=== PATIENT | female | born 1950 | race Native Hawaiian/Other Pacific Islander ===

== ENCOUNTER 2016-03-25 17:09 | Outpatient (CLI) | payer OTHER | END 2016-03-25 19:19 | disposition home or self-care (01) | LOC: RAD 17:09 | DX: J01.10 Acute frontal sinusitis, unspecified (principal); R91.1 Solitary pulmonary nodule ==

== ENCOUNTER 2016-04-12 08:12 | Outpatient (CLI) | payer OTHER ==
[2016-04-12 08:35] LABS: PLATELET COUNT 172 K/uL (152-353)
[2016-04-12 08:58] LABS: POTASSIUM 4.5 mmol/L (3.6-5.2)
== END 2016-04-12 19:32 | disposition home or self-care (01) ==
LOC: LABW 08:12
PROVIDERS: Internal Medicine
DX: I10 Essential (primary) hypertension (principal)
CPT/HCPCS: 36415; 80053; 80061; 81000; 84443; 85027

== ENCOUNTER 2016-04-30 07:24 | Outpatient (CLI) | payer OTHER | END 2016-04-30 19:58 | disposition home or self-care (01) | LOC: CT 07:24 | DX: R91.8 Other nonspecific abnormal finding of lung field (principal) | CPT/HCPCS: 36415; 82565; 84520; Q9963 ==

== ENCOUNTER 2016-05-13 13:03 | Outpatient (CLI) | payer OTHER | END 2016-05-13 19:05 | disposition home or self-care (01) | LOC: NM 13:03 | DX: K80.20 Calculus of gallbladder without cholecystitis without obstruction (principal) | CPT/HCPCS: A9537 ==

== ENCOUNTER 2016-06-10 08:03 | Outpatient (CLI) | payer OTHER | END 2016-06-10 10:00 | disposition home or self-care (01) | LOC: CT 08:03 | DX: R16.0 Hepatomegaly, not elsewhere classified (principal) | CPT/HCPCS: 36415; 82565; 84520; Q9963 ==

== ENCOUNTER 2016-07-20 14:32 | Emergency (ER) | payer OTHER ==
[~2016-07-20] VITALS: Ht 167.6 cm; Wt 65.8 kg
[2016-07-20 14:50] VITALS: TEMP 98.9
[2016-07-20 15:35] LABS: PLATELET COUNT 148 K/uL (152-353)
[2016-07-20 15:40] LABS: POTASSIUM 4.2 mmol/L (3.6-5.2)
[2016-07-20 16:23] VITALS: BP 121/68
== END 2016-07-20 16:29 | disposition home or self-care (01) ==
LOC: ED 14:32
DX: R53.1 Weakness (principal); R53.83 Other fatigue
CPT/HCPCS: 36415; 80053; 82550; 82553; 84484; 85027; 93005; 96360; 99284

== ENCOUNTER 2016-11-12 09:48 | Emergency (ER) | payer OTHER ==
[~2016-11-12] VITALS: Ht 167.6 cm; Wt 68.0 kg
[2016-11-12 10:47] LABS: PLATELET COUNT 182 K/uL (152-353)
[2016-11-12 11:00] VITALS: TEMP 98.2
[2016-11-12 11:30] LABS: POTASSIUM 4.5 mmol/L (3.6-5.2)
[2016-11-12 14:16] VITALS: BP 132/68
== END 2016-11-12 14:22 | disposition home or self-care (01) ==
LOC: ED 09:48
DX: I95.89 Other hypotension (principal); E86.9 Volume depletion, unspecified
CPT/HCPCS: 36415; 80053; 85027; 96360; 96374; 96375; 99284; J2405

== ENCOUNTER 2017-01-28 08:47 | Outpatient (CLI) | payer OTHER ==
[2017-01-28 09:22] LABS: PLATELET COUNT 147 K/uL (152-353)
[2017-01-28 09:40] LABS: POTASSIUM 4.2 mmol/L (3.6-5.2)
== END 2017-01-28 18:57 | disposition home or self-care (01) ==
LOC: LABW 08:47
PROVIDERS: Internal Medicine
DX: I10 Essential (primary) hypertension (principal)
CPT/HCPCS: 36415; 80053; 80061; 81000; 84439; 84443; 85027

== ENCOUNTER 2017-09-21 08:07 | Outpatient (CLI) | payer OTHER ==
[2017-09-21 08:58] LABS: POTASSIUM 4.4 mmol/L (3.6-5.2)
[2017-09-21 09:24] LABS: PLATELET COUNT 151 K/uL (152-353)
== END 2017-09-21 23:59 | disposition home or self-care (01) ==
LOC: LABW 08:07
PROVIDERS: Internal Medicine
DX: Z00.00 Encounter for general adult medical examination without abnormal findings (principal); I10 Essential (primary) hypertension; Z79.899 Other long term (current) drug therapy
CPT/HCPCS: 36415; 80053; 80061; 81000; 84439; 84443; 85027

== ENCOUNTER 2018-09-05 08:19 | Outpatient (CLI) | payer OTHER ==
[2018-09-05 08:36] LABS: PLATELET COUNT 156 K/uL (152-353)
[2018-09-05 08:55] LABS: POTASSIUM 4.2 mmol/L (3.6-5.2)
== END 2018-09-05 23:40 | disposition home or self-care (01) ==
LOC: LABW 08:19
PROVIDERS: Internal Medicine
DX: I10 Essential (primary) hypertension (principal); E78.00 Pure hypercholesterolemia, unspecified
CPT/HCPCS: 36415; 80053; 80061; 81000; 84443; 85027

== ENCOUNTER 2018-10-06 11:09 | Outpatient (CLI) | payer OTHER | END 2018-10-06 21:48 | disposition home or self-care (01) | LOC: MAMMO 11:09 | DX: Z12.31 Encounter for screening mammogram for malignant neoplasm of breast (principal) ==

== ENCOUNTER 2019-01-17 10:30 | Outpatient (CLI) | payer OTHER ==
[2019-01-17 14:18] LABS: POTASSIUM 4.3 mmol/L (3.6-5.2)
[2019-01-17 14:22] LABS: PLATELET COUNT 148 K/uL (152-353)
== END 2019-01-17 21:53 | disposition home or self-care (01) ==
LOC: LABW 10:30
PROVIDERS: Internal Medicine
DX: Z00.00 Encounter for general adult medical examination without abnormal findings (principal); I10 Essential (primary) hypertension; E55.9 Vitamin D deficiency, unspecified; Z13.820 Encounter for screening for osteoporosis; Z79.899 Other long term (current) drug therapy
CPT/HCPCS: 80053; 80061; 81000; 82306; 83036; 84439; 84443; 85027

== ENCOUNTER 2019-01-23 11:26 | Outpatient (CLI) | payer OTHER | END 2019-01-23 20:09 | disposition home or self-care (01) | LOC: RAD 11:26 | DX: Z13.820 Encounter for screening for osteoporosis (principal); N95.9 Unspecified menopausal and perimenopausal disorder ==

== ENCOUNTER 2020-03-12 09:33 | Outpatient (CLI) | payer OTHER | END 2020-03-12 21:40 | disposition home or self-care (01) | LOC: INF 09:33 | PROVIDERS: ATTEND Internal Medicine | DX: Z23 Encounter for immunization (principal) | CPT/HCPCS: 96372 ==

== ENCOUNTER 2020-04-29 11:03 | Outpatient (CLI) | payer OTHER | END 2020-04-29 21:51 | disposition home or self-care (01) | LOC: INF 11:03 | PROVIDERS: ATTEND Internal Medicine | DX: Z23 Encounter for immunization (principal) | CPT/HCPCS: 96372 ==

== ENCOUNTER 2020-06-19 08:48 | Outpatient (CLI) | payer OTHER | END 2020-06-19 23:17 | disposition home or self-care (01) | LOC: US 08:48 | PROVIDERS: ATTEND Internal Medicine | DX: Z12.31 Encounter for screening mammogram for malignant neoplasm of breast (principal); Z13.820 Encounter for screening for osteoporosis; R82.998 Other abnormal findings in urine; N95.8 Other specified menopausal and perimenopausal disorders ==

== ENCOUNTER 2020-10-02 13:44 | Emergency (ER) | payer OTHER ==
[~2020-10-02] VITALS: Ht 167.6 cm; Wt 74.4 kg
[2020-10-02 14:21] VITALS: TEMP 98.8
[2020-10-02 20:53] LABS: PLATELET COUNT 122 K/uL (152-353)
[2020-10-02 21:09] LABS: POTASSIUM 4.2 mmol/L (3.6-5.2); SODIUM 140 mmol/L (136-145)
[2020-10-03 02:00] VITALS: BP 153/72
== END 2020-10-03 02:21 | disposition home or self-care (01) ==
LOC: ED 13:44
PROVIDERS: Emergency Medicine Emergency Medical Services
DX: U07.1 COVID-19 (principal); J12.82 Pneumonia due to coronavirus disease 2019
CPT/HCPCS: 36415; 80053; 84484; 85027; 85379; 86140; 93005; 96360; 99284

== ENCOUNTER 2020-10-24 15:48 | Outpatient (CLI) | payer OTHER | END 2020-10-24 19:21 | disposition home or self-care (01) | LOC: RAD 15:48 | PROVIDERS: ATTEND Internal Medicine | DX: R05 Cough (principal) ==

== ENCOUNTER 2020-12-09 07:47 | Outpatient (CLI) | payer OTHER ==
[2020-12-09 08:17] LABS: PLATELET COUNT 145 K/uL (152-353)
[2020-12-09 08:27] LABS: POTASSIUM 4.9 mmol/L (3.6-5.2)
== END 2020-12-09 21:17 | disposition home or self-care (01) ==
LOC: INF 07:47 → LABW 07:47
PROVIDERS: ATTEND Internal Medicine
DX: J40 Bronchitis, not specified as acute or chronic (principal)
CPT/HCPCS: 36415; 80053; 85027

== ENCOUNTER 2021-01-05 14:10 | Outpatient (CLI) | payer OTHER | END 2021-01-05 21:05 | disposition home or self-care (01) | LOC: RAD 14:10 | PROVIDERS: ATTEND Internal Medicine | DX: R05.9 Cough, unspecified (principal); R06.02 Shortness of breath; R09.89 Other specified symptoms and signs involving the circulatory and respiratory systems ==

== ENCOUNTER 2021-01-12 08:11 | Outpatient (CLI) | payer OTHER | END 2021-01-12 18:57 | disposition home or self-care (01) | LOC: CT 08:11 | PROVIDERS: ATTEND Internal Medicine | DX: R05.3 Chronic cough (principal) | CPT/HCPCS: 36415; 82565; 84520 ==

== ENCOUNTER 2021-05-22 07:53 | Outpatient (CLI) | payer OTHER | END 2021-05-22 20:52 | disposition home or self-care (01) | LOC: US 07:53 | PROVIDERS: ATTEND Internal Medicine | DX: N18.32 Chronic kidney disease, stage 3b (principal) ==

== ENCOUNTER 2021-05-26 12:29 | Emergency (ER) | payer OTHER ==
[~2021-05-26] VITALS: Ht 152.4 cm; Wt 68.0 kg
[2021-05-26 12:55] LABS: PLATELET COUNT 200 K/uL (152-353)
[2021-05-26 13:05] LABS: POTASSIUM 4.8 mmol/L (3.6-5.2)
[2021-05-26 13:10] LABS: PARTIAL THROMBOPLASTIN TIME 25.1 SECONDS (24.5-33.6)
[2021-05-26 14:25] VITALS: BP 121/64; TEMP 97.6
== END 2021-05-26 14:25 | disposition short-term general hospital (02) ==
LOC: ED 12:29
PROVIDERS: Emergency Medicine
DX: R09.1 Pleurisy (principal); R06.02 Shortness of breath; Z11.52 Encounter for screening for COVID-19; Z98.890 Other specified postprocedural states
CPT/HCPCS: 36415; 80053; 83880; 84484; 85027; 85379; 85610; 85730; 87635; 93005; 99284; U0003